=== PATIENT | female | born 1990 | race Caucasian/White ===

== ENCOUNTER 2020-06-25 11:31 | Emergency (ER) | payer OTHER, SELFPAY ==
[2020-06-25 11:55] VITALS: BP 147/72; PULSE 85; RESP 16; TEMP 36.6; O2SAT 100
--- NOTE | 2020-06-25 12:09 | ED.URI ---
HPI - URI/Sore Throat General Chief Complaint: Upper Respiratory Infection Stated Complaint: Sore/Swollen Throat Time Seen by Provider: 06/25/20 12:10 Source: patient and RN notes reviewed Mode of arrival: ambulatory Limitations: no limitations History of Present Illness HPI Narrative: 30 year old female who presents to [facility] care with complaints of waking with severe throat throat that feels swollen with pain with swallowing. Patient states that she has not noted any fevers, chills or sweats, denies any ear pain, sinus drainage or congestion. Patient rates her pain as 6/10 with throat throbbing and feels 'chunky'. Patient relays history of COVID and strep throat 2.5 month ago. Patient denies any shortness of breath, no trismus noted and is able to control own secretions. MD elicited complaint: sore throat Pertinent past history: other (strep throat and COVID 2.5 months ago) Onset (ago): hour(s) (since this morning) Consistency: progressively worsening Severity: moderate Pain scale (0-10): 6 Able to tolerate fluids by mouth: Yes Exacerbating factors: swallowing Associated symptoms: other (swollen neck glands) Related Data Allergies Allergy/AdvReac Type Severity Reaction Status Date / Time amoxicillin Allergy Rash Verified 06/25/20 11:57 HYDROCODONE BIT Allergy Unknown Rash Uncoded 06/25/20 11:57 Review of Systems Review of Systems: Narrative: CONSTITUTIONAL: Denies fever, chills, or sweats. EYES: Denies visual changes, redness, or discharge. ENT: Denies rhinorrhea, congestion, positive for sore throat with gland swollen, denies any, otalgia. CARDIOVASCULAR: Denies chest pain, palpitations, or edema. RESPIRATORY: Denies cough or dyspnea. GASTROINTESTINAL: Denies abdominal pain, nausea, vomiting, or diarrhea. GENITOURINARY: Denies dysuria or hematuria. SKIN: Denies rash or itching. MUSCULOSKELETAL: Denies back pain, joint pain, or myalgia. NEUROLOGIC: Denies headache, numbness, or weakness. PSYCHIATRIC: Denies anxiety or depression. 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 Surgical History Surgical History (Updated 06/25/20 @ 12:26 by Love Layne NP) H/O tubal ligation History of History of cholecystectomy History of wisdom tooth extraction, class I edentulism Family History Family History (Updated 06/25/20 @ 12:25 by Love Layne NP) Father Hypertension Grandparent Heart disease Diabetes mellitus Social History Social History (Updated 06/25/20 @ 12:24 by Love Layne NP) Smoking status: Never smoker Alcohol intake: never Substance use: never Living arrangements: with family Gender identity (if verbalized by the patient): Female Comments At time of signature, agree with nursing past medical, surgical, social and family history. There is no relevant family history pertinent to the presenting complaint Exam Narrative: Exam Narrative: GENERAL: Well-appearing, well-nourished, and in no acute distress. HEAD: Normocephalic, atraumatic. EYES: PERRLA and EOMI. ENT: Nares clear, no rhinorrhea or epistaxis. Mucous membranes moist.TM's normal with good light reflex, throat beefy red with no lesions or exudates, tonsil swollen. NECK: Supple.lymphadenopathy CHEST: Clear to auscultation. No respiratory distress.SAO2 100% on room air HEART: Regular rate and rhythm. No murmur heard. Normal peripheral pulses. ABDOMEN: Soft, nontender, nondistended, normal active bowel sounds. EXTREMITIES: Normal range of motion. No edema.denies any myalgia SKIN: Warm, dry, no rash. NEURO: No focal deficits. Alert and oriented x3. Course Vital Signs Vital signs: Vital Signs Temperature 36.6 C 06/25/20 11:55 Pulse Rate 85 06/25/20 11:55 Respiratory Rate 16 06/25/20 11:55 Blood Pressure 147/72 H 06/25/20 11:55 Pulse Oximet
== END 2020-06-25 12:20 | disposition home or self-care (01) ==
PROVIDERS: Emergency Provider Registered Nurse; PCP Internal Medicine
DX: J03.90 Acute tonsillitis, unspecified (principal)
CPT/HCPCS: 87081; 87880; 99213; G0463

== ENCOUNTER 2021-04-29 14:02 | Emergency (ER) | payer OTHER, SELFPAY ==
[2021-04-29 14:14] VITALS: BP 123/75; PULSE 78; RESP 18; TEMP 36.3; O2SAT 100
[2021-04-29 17:17] VITALS: BP 116/78; PULSE 65; RESP 18; O2SAT 100
[2021-04-29] MEDS: TETANUS,DIPHTHERIA,AC PERTUSSIS ADULT (0.5 ML) BOOSTRIX IM (17:47)
--- NOTE | 2021-04-29 18:08 | ED.WOUNDLAC ---
HPI - Wound/Laceration General Chief Complaint: Wound/Laceration Stated Complaint: laceration Time Seen by Provider: 04/29/21 16:58 Source: patient Mode of arrival: ambulatory Limitations: no limitations History of Present Illness HPI narrative: This is a 31-year-old female that presents to the emergency department for a laceration to the right first finger sustained just prior to arrival. Reports she was slicing gigi and accidentally sliced the tip of her thumb. Reports bleeding and pain to the area. She is not up-to-date on tetanus. Denies decreased range of motion or numbness. 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 Surgical History Surgical History (Updated 06/25/20 @ 12:26 by Love Layne NP) H/O tubal ligation History of History of cholecystectomy History of wisdom tooth extraction, class I edentulism Family History Family History (Updated 06/25/20 @ 12:25 by Love Layne NP) Father Hypertension Grandparent Heart disease Diabetes mellitus Social History Social History (Updated 06/25/20 @ 12:24 by Love Layne NP) Smoking status: Never smoker Alcohol intake: never Substance use: never Gender identity (if verbalized by the patient): Female Exam Narrative: GENERAL: Well-appearing, well-nourished, and in no acute distress. HEAD: Normocephalic, atraumatic. EYES: EOMI. EXTREMITIES: Normal range of motion. No edema. Right first finger with 1cm avulsion of tip. Normal radial pulses. Normal sensation SKIN: Warm, dry, no rash. NEURO: No focal deficits. Alert and oriented x3. PSYCH: Normal mood and affect Course Vital Signs Vital signs: Vital Signs Temperature 97.3 F L 04/29/21 14:14 Pulse Rate 78 04/29/21 14:14 Respiratory Rate 18 04/29/21 14:14 Blood Pressure 123/75 04/29/21 14:14 Pulse Oximetry 100 04/29/21 14:14 Temperature 97.3 F L 04/29/21 14:14 Pulse Rate 65 04/29/21 17:17 Respiratory Rate 18 04/29/21 17:17 Blood Pressure 116/78 04/29/21 17:17 Pulse Oximetry 100 04/29/21 17:17 Procedures Laceration Laceration 1: Date: 04/29/21 Site: hand Side (If applicable): right Size (cm): 1 Description: other (avulsion) Depth: simple, single layer Local Anesthetic: lidocaine 1% Amount of anesthesia used (mL): 3 Pre-repair: irrigated ====== Skin Level ====== ====== Subcutaneous Layer ====== ====== Muscle Layer ====== ====== Tendon Layer ====== Dressing: Wound irrigated and bleeding controlled with Surgicel MDM - Wound/Laceration MDM Narrative Medical decision making narrative: Patient presents to the emergency department for avulsion injury to the right first finger. Wound was irrigated and bleeding controlled with Surgicel. Patient was educated on wound care. She was updated on tetanus. She is to follow-up with primary care doctor. She was given warnings to return to the ER Critical Care Time Critical Care Time Critical Care Time: No Discharge Plan Discharge Clinical Impression: Avulsion of skin of finger Qualifiers: Encounter type: initial encounter Qualified Code(s): S61.209A - Unspecified open wound of unspecified finger without damage to nail, initial encounter Patient Disposition: Home, Self-Care Condition: Stable Instructions: Antibiotic Form, Skin Avulsion (ED) Additional Instructions: Return to the emergency d
== END 2021-04-29 18:38 | disposition home or self-care (01) ==
PROVIDERS: Emergency Provider Emergency Medicine
DX: S61.011A Laceration without foreign body of right thumb without damage to nail, initial encounter (principal); Z23 Encounter for immunization; Y93.G1 Activity, food preparation and clean up; W26.9XXA Contact with unspecified sharp object(s), initial encounter
CPT/HCPCS: 90471; 90715; 99283

== ENCOUNTER 2021-08-03 10:38 | Emergency (ER) | payer OTHER, SELFPAY ==
[2021-08-03 10:53] VITALS: BP 128/86; PULSE 85; RESP 20; TEMP 36.6; O2SAT 100
--- NOTE | 2021-08-03 11:28 | ED.URI ---
HPI - URI/Sore Throat General Chief Complaint: Upper Respiratory Infection Stated Complaint: Ear Pain/Sore Throat Time Seen by Provider: 08/03/21 11:28 Source: patient, RN notes reviewed and old records reviewed Mode of arrival: ambulatory Limitations: no limitations History of Present Illness HPI Narrative: 31 [place] old female accompanied by daughter with complaints of cough, sore throat, ears popping intermittent fevers up to 102F since Sunday. Patient reports that she has been taking Ibuprofen and Tylenol for her discomfort and fevers, she has also been taking Claritin and Thera Flu with no resolution of symptoms. Patient reports that she had Covid in 2019 but has not had Covid or influenza shot. Patient reports that her cough is dry and frequent, reports no dyspnea, no tachypnea noted SAO2 100% on room air. MD elicited complaint: fever, cough and sore throat Related Data Allergies Allergy/AdvReac Type Severity Reaction Status Date / Time amoxicillin Allergy Rash Verified 08/03/21 10:58 Penicillins Allergy Rash Verified 08/03/21 10:58 HYDROCODONE BIT Allergy Unknown Rash Uncoded 08/03/21 10:58 Review of Systems Review of Systems: CONSTITUTIONAL: Positive for fever, chills, or sweats. EYES: Denies visual changes, redness, or discharge. ENT: Positive for rhinorrhea, congestion, sore throat, otalgia. CARDIOVASCULAR: Denies chest pain, palpitations, or edema. RESPIRATORY: Positive for cough denies dyspnea. GASTROINTESTINAL: Denies abdominal pain, nausea, vomiting, or diarrhea. GENITOURINARY: Denies dysuria or hematuria. SKIN: Denies rash or itching. MUSCULOSKELETAL: Denies back pain, joint pain, or myalgia. NEUROLOGIC: Denies headache, numbness, or weakness. PSYCHIATRIC: Denies anxiety or depression. 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 There is no relevant family history pertinent to the presenting complaint Exam Narrative: GENERAL: Well-appearing, well-nourished, and in no acute distress. HEAD: Normocephalic, atraumatic. EYES: PERRLA and EOMI. ENT: Nares red with clear nasal rhinorrhea no epistaxis. Mucous membranes moist.TM's normal with good light reflex, throat red with no lesions or exudates, some tonsil redness and swelling, post nasal drainage in back of throat noted. NECK: Supple.no lymphadenopathy CHEST: Clear to auscultation. No respiratory distress.cough dry SAO2 100% on room air HEART: Regular rate and rhythm. No murmur heard. Normal peripheral pulses. ABDOMEN: Soft, nontender, nondistended, normal active bowel sounds. EXTREMITIES: Normal range of motion. No edema. SKIN: Warm, dry, no rash. NEURO: No focal deficits. Alert and oriented x3. Course Course Level of Care: Express Care Visit Vital Signs Vital signs: Vital Signs Temperature 36.6 C 08/03/21 10:53 Pulse Rate 85 08/03/21 10:53 Respiratory Rate 20 08/03/21 10:53 Blood Pressure 128/86 08/03/21 10:53 Pulse Oximetry 100 08/03/21 10:53 Temperature 36.6 C 08/03/21 10:53 Pulse Rate 85 08/03/21 10:53 Respiratory Rate 20 08/03/21 10:53 Blood Pressure 128/86 08/03/21 10:53 Pu
== END 2021-08-03 12:19 | disposition home or self-care (01) ==
PROVIDERS: Emergency Provider Registered Nurse
DX: J06.9 Acute upper respiratory infection, unspecified (principal); Z20.822 Contact with and (suspected) exposure to COVID-19
CPT/HCPCS: 87426; 87804; 99213; C9803; G0463

== ENCOUNTER 2025-01-15 11:45 | Emergency (ER) | payer BC, MEDICAID, SELFPAY ==
[2025-01-15 11:58] VITALS: BP 113/76; PULSE 75; RESP 18; TEMP 36.9; O2SAT 100
--- NOTE | 2025-01-15 12:08 | ED.URI ---
HPI - URI/Sore Throat General Chief Complaint: Upper Respiratory Infection Stated Complaint: Nasal Congestion/Cough/Ear Problem Time Seen by Provider: 01/15/25 12:13 Source: patient and RN notes reviewed Mode of arrival: ambulatory Limitations: no limitations History of Present Illness HPI Narrative: 34-year-old female presents with concern for 5 day history of cough, head congestion, ear pain. She reports she was seen on Sunday and was checked for strep and it was negative. She has been taking Mucinex without relief. MD elicited complaint: cough and nasal congestion Related Data Allergies Allergy/AdvReac Type Severity Reaction Status Date / Time amoxicillin Allergy Rash Verified 08/03/21 10:58 Penicillins Allergy Rash Verified 08/03/21 10:58 HYDROCODONE BIT Allergy Unknown Rash Uncoded 08/03/21 10:58 Review of Systems Review of Systems: CONSTITUTIONAL: Denies malaise, chills, sweats, or fever. EYES: Denies visual changes, redness, or discharge. ENT: Reports rhinorrhea, congestion, otalgia denies sore throat. CARDIOVASCULAR: Denies chest pain, palpitations, or edema. RESPIRATORY: Reports productive cough. Denies dyspnea. GASTROINTESTINAL: Denies abdominal pain, nausea, vomiting, diarrhea SKIN: Denies rash or itching. MUSCULOSKELETAL: Denies myalgia. NEUROLOGIC: Denies headache. 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 There is no relevant family history pertinent to the presenting complaint Exam Narrative: GENERAL: Well-appearing, well-nourished, and in no acute distress. HEAD: Normocephalic EYES: PERRLA, conjunctivae clear ENT: Nares clear, turbinates edematous and erythematous, green discharge. Mucous membranes moist. TM pearly aparicio with dull light reflex bilaterally; no tragal tenderness. Oropharynx not erythematous without lesions. Tonsils not enlarged and without exudate, no drooling, no hoarseness, no trismus, uvula midline. NECK: Supple. No lymphadenopathy CHEST: Clear to auscultation, breath sounds equal. No wheezing, rhonchi, rales, or stridor. No respiratory distress, speaks in full sentences. HEART: Regular rate and rhythm. No murmur heard. SKIN: Warm, dry, no rash. NEURO: Alert and oriented x3. PSYCH: Normal mood and affect Course Course Emergency Course: Patient is aware of diagnosis, understands and agrees to treatment plan. Anticipatory guidance given. Patient agrees to follow-up as directed and is aware of reasons to seek care at the emergency department. Portions of this record may have been created with voice recognition software Level of Care: Express Care Visit Vital Signs Vital signs: Vital Signs Temperature 98.5 F 01/15/25 11:58 Pulse Rate 75 01/15/25 11:58 Respiratory Rate 18 01/15/25 11:58 Blood Pressure 113/76 01/15/25 11:58 Pulse Oximetry 100 01/15/25 11:58 Temperature 98.5 F 01/15/25 11:58 Pulse Rate 75 01/15/25 11:58 Respiratory Rate 18 01/15/25 11:58 Blood Pressure 113/76 01/15/25 11:58 Pulse Oximetry 100 01/15/25 11:58 Reviewed. MDM - URI/Sore Throat MDM Narrative Medical decision making narrative: Differential diagnosis considered: [place] virus, strep pharyngitis, allergic rhinitis, upper respiratory tract infection, sinusitis, rhinosinusitis, nasopharyngitis. viral pharyngitis, otitis media, otitis externa, pneumonia, bronchitis, viral cough syndrome, viral syndrome, and influenza. Exam findings show no acute concerns or changes; patient is non-toxic appearing and is in no distress. Patient is appropriate for outpatient treatment and follow-up. Lab Data Attestation: I reviewed the patient's lab results. Critical Care Time Critical Care Time Critical Care Time: No Discharge Plan Discharge Clinical Impression: Upper respiratory infection Patient Disposition: Home Condition: Stable Instructions: Upper Respiratory Infection (ED) Additional Instructions: Viral illness may last between 7-21 days; antibiotics do not cure viral illness and are NOT recommended at this time. Recommend antihistamine such as Benadryl at night time and Zyrtec or Nadia during the day Cough syrup may cause drowsiness; avoid driving or take it at night time. Also, recommend symptomatic treatment includes: rest, fluids, and increase humidity of the air at home. Recommend Acetaminophen as directed on the bottle to reduce fever, pain, headache. Avoid smoking/second-hand smoke. Please schedule a follow-up visit with your personal physician for further evaluation and treatment within 3-5days. If your symptoms persist, change or worsen significantly before you can contact your personal physician then please, without delay, go to the emergency department for further evaluation. Patient Language: Kyrgyz Prescriptions: New promethazine-DM 6.25-15 mg/5 mL syrup 5 ml PO Q4-6H PRN (Reason: cough) Qty: 120 0RF prednisone 20 mg tablet 40 mg PO DAILY 5 Days Qty: 10 0RF Follow-up/Referrals: PHYSICIAN NOT ON STAFF,NONSTAFF [Primary Care Provider] Time of Disposition: 12:21
--- OUTSIDE RECORDS SUMMARY | 2025-01-15 13:46 | XMS_ITS | Clinical Summary ---
Author Organization [address] Address [address] [place] [id number] Care Team Providers Care Customer Acquisition Specialist Name Role Phone Ray Rowley MD Primary Care Provider [phone] Allergies Active Allergy Reactions Criticality Noted Date Comments Amoxicillin Hives Reaction: Hives, Codeine Itching Reaction: Itching, Hydrocodone-Acetaminoph en Hives,Fever,Itching Medium 04/12/2011 Penicillins Hives,Itching,Rash Medium 04/12/2011 Reaction: Hives, , Potassium Hives Reaction: Hives, Medications erythromycin (ILOTYCIN) ophthalmic ointment Apply thin layer to cuts three times a day for 1 weel 3.5 g 11 2 Active neomycin-polymy bartolo B-dexAMETHasone (MAXITROL) 3.5 mg/g-10,000 unit/g-0.1 % ointment Apply to right eyelid twice a day. 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 04/06/2022 Cyst of right upper eyelid 04/06/2022 Assessment & Plan (05/02/2022 1:22 PM BLACKTOP PAVER OPERATOR): much smaller, not quite resolved Assessment & Plan (04/06/2022 1:46 PM BLACKTOP PAVER OPERATOR): Cont warm compresses See plastics if no improvement (NI) in 2-3 weeks Effusion of right knee 01/05/2022 Injury of right knee 01/05/2022 Closed fracture of lateral portion of right tibi al plateau 01/05/2022 Eyelid laceration, right, subsequent encounter 0 12/23/2021 Assessment & Plan (04/06/2022 1:47 PM BLACKTOP PAVER OPERATOR): No staining, no FB Assessment & Plan (01/06/2022 2:06 PM CDT): Stellate upper and lower eyelid laceration with lower lid margin involvement repaired in the ED 12/16/21 (Coleman/Jesús) Feeling much better, mild intermittent itching, no dryness. Still w/ some lagophthalmos. Plan: -- continue erythromycin Refresh PM QHS -- return precautions for worsening redness, eye pain, photophobia, discharge, decreased vision discussed -- RTC 3 months Assessment & Plan (12/23/2021 2:08 PM CDT): Stellate upper and lower eyelid laceration with lower lid margin involvement repaired in the ED 12/16/21 (Coleman/Jesús) -- ran out of erythromycin two days ago. Eyelid has been tight feeling since then -- today, has varying degrees of lagophthalmos. Laceration is healing well with scab formation. Some central SPEE. 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) 02/2012 Surgical History Surgery Date Site/Laterality Comments SECTION 2012 section OTHER SURGICAL HISTORY 2011 laparoscopic cholecystectomy 05/14 Family History Medical History Relation Name Comments Diabetes Maternal Grandfather Diabete s mellitus; Hypertension Maternal Grandfather Hyperte nsion; Relation Name Status Comments Maternal Grandfather Social History Tobacco Use Types Packs/Day Years Used Date Smoking Tobacco: Never Smokeless Tobacco: Never Tobacco Cessation:Counseling Given: Not Answered Alcohol Use Standard Drinks/Week Comments No 0 (1 standard drink = 0.6 oz pur e alcohol) Comments No Sex and Gender Information Value Date Recorded Sex Assigned at Not on file Legal Sex Female 2:18 AM BLACKTOP PAVER OPERATOR Gender Identity Not on file Sexual Orientation Not on file Obstetrics History Last Filed Vital Signs Vital Sign Reading Time Taken Comments Blood Pressure 112/75 12/31/2021 8:32 PM CDT Pulse 78 12/31/2021 8:32 PM CDT Temperature 36.3 C (97.3 F) 12/31/2021 8:32 PM CDT Respiratory Rate 17 12/31/2021 8:32 PM CDT Oxygen Saturation 100% 12/31/2021 8:32 PM CDT Inhaled Oxygen Concentration - - Weight 98.4 kg (217 lb) 01/05/2022 12:59 PM CDT Height 160 cm (5' 3) 01/05/2022 12:59 PM CDT Body Mass Index 38.44 01/05/2022 12:59 PM CDT Plan of Treatment Health Maintenance Due Date Last Done Comments Cervical Cancer Screening 1991 Depression Screening 1991 Varicella Vaccines (1 of 2 - 13+ 2-dose series) 2004 Hepatitis B Screening 2009 Regular Well Visit/Exam 18-64 2009 HPV Vaccines (1 - 3-dose SCD M series) 2018 DTaP/Tdap/Td Vaccine (2 - Td or Tdap) 05/11/2021 05/11/2011 Influenza Vaccine (#1) 2024 05/11/2011 Hepatitis C Screening Completed 12/16/2021 Pneumococcal vaccine <65 Aged Out No longer eligible based on patient's age to complete this topic Procedures Procedure Name Priority Date/Time Associated Diagnosis Comments HEPATITIS C ANTIBODY Routine 12/16/2021 8:08 PM CDT from Last 3 Months or Most Recently Relevant to Health Maintenance Results * Hepatitis C antibody (12/16/2021 8:08 PM CDT) Hep C Ab Nonreactive Nonreactive [facility] Comment:Antibodies to HCV no t detected. Does NOT exclude the possibility of recent exposure to HCV. Blood 12/16/2021 8:08 PM CDT 12/16/2021 8:41 PM CDT us Notinfile Unknown LAB MICROBIOLOGY - GENERAL ORD ERABLES Edited Result - Final [facility] [place] [address] from Last 3 Months or Most Recently Relevant to Health Maintenance Insurance [facility] [employer] [facility] [employer] Care Teams Customer Acquisition Specialist Relationship Specialty Start Date End Date Ray Rowley MD PCP - General 06/13/11
--- OUTSIDE RECORDS SUMMARY | 2025-01-15 13:46 | XMS_ITS | Clinical Summary ---
Author Organization [facility] Address [address] [place] [address] Phone Care Team Providers Care Song And Dance Performer Name Role Phone Maricruz Gabriel APRN, PICKING MACHINE OPERATOR Primary Care P rokaushalder Allergies Active Allergy Reactions Criticality Noted Date Comments Amoxicillin Hives Medium 07/21/2020 Cefdinir Hives 08/10/2023 Codeine Itching 08/10/2023 Reaction: Itching, Hydrocodone-Acetaminoph en Itching Low 04/12/2011 Penicillins Hives,Rash,Itching,U nknown Medium 04/12/2011 Reaction: Hives Potassium Hives 08/10/2023 Reaction: Hives, Medications FLUoxetine (PROzac) 20 MG CapsuleIndicati ons:Depression Take 2 Capsules by mouth daily. Indications: Depression 90 Capsule Active Additional Information Patient not taking.Reported on 01/12/2025 Active Problems Problem Noted Date Diagnosed Date Moderate episode of recurrent major depressive d isorder 07/04/2024 Encounters Date Type Department Care Team Description 01/12/2025 8:55 AM CDT [facility] [address] [place] [address] Crow Victor, EDDIE Sore throat (Primary Dx); Chills; Viral illness Discharge Disposition: Discharged to home or Selfcare 01/12/2025 Travel from Last 3 Months Immunizations Immunization Administration Dates Next Due DTAP VACCINE 11/06/1995 DTP-Hib 02/14/1993,02/04/1992,1991 Influenza Seasonal, Intrader mal, Preservative Free 05/11/2011 MMR Vaccine 02/14/1993 OPV 11/06/1995, 3,02/04/1992,1991 RHO D IG FULL DOSE 300 MCG IM 02/21/2011 Rho(d) Immune Globulin - Im 05/09/2011 TB Skin Test 11/03/2021 TDAP Vaccine 04/29/2021,05/11/2011 Social History Tobacco Use Types Packs/Day Years Used Date Smoking Tobacco: Never Smokeless Tobacco: Never Tobacco Cessation:Counseling Given: Not Answered Alcohol Use Standard Drinks/Week Comments Not Currently 0 (1 standard drink = 0.6 oz pur e alcohol) [facility] [employer] Answer Date Recorded In the past 12 months has [employer], gas, oil, or water [employer] threatened to shut off services in your home? Patient declined 07/04/2024 Social Connection and Isolation Panel Answer Date Recorded In a typical week, how many times do you talk on the phone with family, friends, or neighbors? Patient declined 07/04/2024 How often do you get togethe r with friends or relatives? Patient declined 07/04/2024 How often do you attend gnosticism or oriental orthodox serv ices? Patient declined 07/04/2024 Do you belong to any clubs o r organizations such as gnosticism groups, unions, fraternal or athletic groups, or school groups? Patient declined 07/04/2024 How often do you attend meet ings of the clubs or organizations you belong to? Patient declined 07/04/2024 Are you , , di vorced, , never , or living with a partner? Patient declined 07/04/2024 AUDIT-C Answer Date Recorded Q1: How often do you have a drink containing alc ohol? Patient declined 07/04/2024 Q2: How many drinks containi ng alcohol do you have on a typical day when you are drinking? Patient declined 07/04/2024 Q3: How often do you have si x or more drinks on one occasion? Patient declined 07/04/2024 Overall Financial Resource Strain (CARDIA) Answe r Date Recorded How hard is it for you to pa y for the very basics like food, housing, medical care, and heating? Patient declined 07/04/2024 PHQ-2 Answer Date Recorded Total Score - Questions 1-9 10 05/0 12/2024 [facility] of Occupat ional Health - Occupational Stress Questionnaire Answer Date Recorded Do you feel stress - tense, restless, nervous, or anxious, or unable to sleep at night because your mind is troubled all the time - these days? Patient declined 07/04/2024 Exercise Vital Sign Answer Date Recorde d On average, how many days pe r week do you engage in moderate to strenuous exercise (like a brisk walk)? Patient declined On average, how many minutes do you engage in exercise at this level? Patient declined 07/04/2024 Hunger Vital Sign Answer Date Recorded Within the past 12 months, y ou worried that your food would run out before you got the money to buy more. Patient declined Within the past 12 months, t he food you bought just didn't last and you didn't have money to get more. Patient declined 07/2024 PRAPARE - Transportation Answer Date Re corded In the past 12 months, has l ack of transportation kept you from medical appointments or from getting medications? Patient declined 07/04/2024 In the past 12 months, has l ack of transportation kept you from meetings, work, or from getting things needed for daily living? Patient declined 07/04/2024 Housing Stability Vital Sign Answer Ran e Recorded In the last 12 months, was t here a time when you were not able to pay the mortgage or rent on time? Patient declined 07/05/19 25 Number of Times Moved in the Last Year Not on fi le 07/04/2024 At any time in the past 12 m [facility], were you homeless or living in a fdc (including now)? Patient declined 07/04/2024 Comments No Sex and Gender Information Value Date Recorded Sex Assigned at Not on file Legal Sex Female 11:40 PM CDT Gender Identity Not on file Sexual Orientation Not on file Last Filed Vital Signs Vital Sign Reading Time Taken Comments Blood Pressure 112/72 01/12/2025 8:59 AM CDT Pulse 89 01/12/2025 8:59 AM CDT Temperature 36.8 C (98.3 F) 01/12/2025 8:59 AM CDT Respiratory Rate 20 01/12/2025 8:59 AM CDT Oxygen Saturation 100% 01/12/2025 8:59 AM CDT Inhaled Oxygen Concentration - - Weight 94.8 kg (209 lb) 08/08/2024 3:13 PM CDT Height 160 cm (5' 3) 08/08/2024 3:13 PM CDT Body Mass Index 37.02 08/08/2024 3:13 PM CDT Plan of Treatment Health Maintenance Due Date Last Done Comments Hepatitis B Immunization (1 of 3 - 19+ 3-dose series) 2010 Pap Smear 2012 Human Papillomavirus (HPV) Immunization (1 - 3-dose SCDM series) 2018 Cervical Cancer Screening (CCS) 2021 HPV/Cotest 2021 Influenza Immunization (#1) 2024 SARS-COV-2 Immunization ( - season) 2024 DTaP/Tdap/Td Immunization (7 - Td or Tdap) 04/29/2031 04/29/2021, 05/11/2011, 11/06/1995, Additional history exists Respiratory Syncytial Virus (RSV) Immunization (Adult) (1 - 1-dose 75+ series) 2066 TdaP Immunization Discontinued 04/29/2021, 05/11/2011 Hepatitis C Virus (HCV) Screening Completed 12/16/2021 Meningococcal Immunization (ACWY) Aged Out No longer eligible based on patient's age to complete this topic Pneumococcal Immunization Combined Aged Out No longer eligible based on patient's age to complete this topic Rotavirus Immunization Aged Out No lo nger eligible based on patient's age to complete this topic Procedures Procedure Name Priority Date/Time Associated Diagnosis Comments POC SARS-COV-2 BY MOLECULAR Routine 01/12/2025 9:09 AM CDT Sore throat Chills POC GROUP A STREP BY MOLECULAR Routine 01/12/2025 9:09 AM CDT Sore throat Chills POC INFLUENZA A AND B BY MOLECULAR Routine 01/12/2025 9:08 AM CDT Sore throat Chills from Last 3 Months Results * POC SARS-COV-2 BY MOLECULAR (01/12/2025 9:09 AM CDT) SARSCOV2 Negative Negative, INVALID PROCEDURE CONTROL Valid 01/12/2025 9:09 AM CDT [facility] POINT OF CARE TESTING (MANUAL ) Final Result * POC GROUP A STREP BY MOLECULAR (01/12/2025 9:09 AM CDT) STREP A DNA Negative Negative, Invalid PROCEDURE CONTROL Valid 01/12/2025 9:09 AM CDT [facility] POINT OF CARE TESTING (MANUAL ) Final Result * POC INFLUENZA A AND B BY MOLECULAR (01/12/2025 9:08 AM CDT) INFLUENZA A RNA Negative Negative, Invalid INFLUENZA B RNA Negative Negative, Invalid PROCEDURE CONTROL Valid 01/12/2025 9:08 AM CDT [facility] POINT OF CARE TESTING (MANUAL ) Final Result from Last 3 Months Insurance [place] Member Subscriber Plan / Payer (Ef fective 2023-Present) Name:Flaquito Fernando Relation to Subscriber:Self Name:Flaquito Fernando Payer ID:[id number] Group ID:Not on file Type:Not on file Address: [address] Care Teams Song And Dance Performer Relationship Specialty Start Date End Date Maricruz Gabriel APRN, PICKING MACHINE OPERATOR [address] [place] [address] PCP - General Advanced Practice Nurse 07/04/24
--- OUTSIDE RECORDS SUMMARY | 2025-01-15 13:46 | XMS_ITS | Encounter Summary ---
Author Organization [facility] Address [address] [place] [address] Phone Care Team Providers Care Abattoir Manager Name Role Phone Ray Rowley MD Primary Care Provider [phone] Provider, None Primary Care Provider Maricruz Gunter APRN, CHICKEN HATCHERY HELPER Primary Care P kelli Reason for Visit * Reason Onset Date Comments New Patient 11/03/2021 Encounter Details Date Type Department Care Team (Late st Contact Info) Description 11/03/2021 Telephone [facility] [address] [place] [address] Provider, None [place] New Patient Social History Tobacco Use Types Packs/Day Years Used Date Smoking Tobacco: Never Smokeless Tobacco: Never Comments No Sex and Gender Information Value Date Recorded Sex Assigned at Not on file Legal Sex Female 11:40 PM CDT Gender Identity Not on file Sexual Orientation Not on file documented as of this encounter Miscellaneous Notes * Telephone Encounter - Bridget Fuller - 11/03/2021 12:39 PM CDT ----- Message from Rani Celis sent at 11/03/2021 11:34 AM CDT ----- Regarding: new patient [place] [facility] [place] Request Insurance of patient: Medicaid Name of person calling: Flaquito Relationship to patient: self Preferred phone number: [phone] Alternate phone number: na Region / Office location preference: [place] Provider preference (male/female, specific provider name): Dr. Salas Willing to see someone other than physician, such as [place], resident? yes Patient reason for appointment/any current symptoms: Physical for work Other information (including need for rock dust sprayer): na Route ALL calls to: [facility] PATIENT CARETAKER [employer]OUNDS documented in this encounter Plan of Treatment Not on file documented as of this encounter Visit Diagnoses Not on filedocumented in this encounter Additional Health Concerns Infection Onset Date Last Indicated Resolved Time COVID - 19 01/12/2025 01/12/2025 01/12/2025 9:19 AM CDT Respiratory Rule-Out 01/12/2025 01/12/2025 025 9:18 AM CDT documented as of this encounter Care Teams Abattoir Manager Relationship Specialty [place] [address] [id number] PCP - General Internal Medicine 04/08/18 09/11/22 Provider, None [place] PCP - General 08/10/23 07/03/24 Maricruz Gabriel, PEARLER, CHICKEN HATCHERY HELPER [address] [place] [address] PCP - General Advanced Practice Nurse 07/04/24 documented as of this encounter
== END 2025-01-15 12:28 | disposition home or self-care (01) ==
PROVIDERS: Emergency Provider Nurse Practitioner
DX: J06.9 Acute upper respiratory infection, unspecified (principal)
CPT/HCPCS: 99213; G0463